=== PATIENT | male | born 1980 | race African-American/Black ===

== ENCOUNTER 2017-09-23 08:06 | Day surgery (SDC) | payer OTHER ==
[2017-09-17 15:57] VITALS: BMI 27.2
[2017-09-23 08:46] LABS: BASOPHIL 0.3 % (0-2.0); EOSINOPHIL 1.5 % (0-4.5); MCHC 32.5 g/dl (32.0-35.9); MEAN CELL VOLUME 83.1 fl (80-96); MEAN PLT VOLUME 7.8 fl (7.5-11.1); PLATELET COUNT 226 K/MM3 (134-434); WHITE BLOOD COUNT 5.4 K/mm3 (4.0-10.0)
[2017-09-23 08:48] LABS: INR 1.1 (0.82-1.09); PROTHROMBIN TIME (PATIENT) 12.4 SEC (9.98-11.88)
[2017-09-23] MEDS ORDERED: MIDAZOLAM HCL 2 MG/2 ML SINGLE DOSE VIAL ONE ×3 (09:50→10:36)
--- NOTE | 2017-09-23 10:12 | HP ---
History & Physical Update - History History: No Change - Physical Physical: No Change - Assessment Assessment: No Change - Plan Plan: No Change (Soft tissue mass right upper extremity for excision; r/b/t/a's d/w patient in the office; informed consent obtained; pre-op medical evaluation has been reviewed.)
[2017-09-23] MEDS ORDERED: BUPIVACAINE HCL/PF 0.5% (5MG/ML) 10 ML VIAL ONE (10:20)
[2017-09-23] MEDS ORDERED: LIDOCAINE HCL 1%, 10 MG/ML (20ML VIAL) ONE (10:24)
[2017-09-23] MEDS ORDERED: PROPOFOL 20 ML ONE (10:25)
[2017-09-23] MEDS ORDERED: LIDOCAINE HCL 1%, 10 MG/ML (20ML VIAL) NR ONE (10:40)
[2017-09-23] MEDS ORDERED: BUPIVACAINE HCL/PF 0.5% (5MG/ML) 10 ML VIAL IJ ONE (10:40)
--- NOTE | 2017-09-23 11:03 | OP ---
Operative Note - Note: Operative Date: 09/23/17 Pre-Operative Diagnosis: lipoma right upper extremity Operation: excision lipoma right upper extremity Findings: 2.6 cm. lipoma Post-Operative Diagnosis: Same as Pre-op Surgeon: Romeo Jeffers Anesthesiologist/FLOOR WORKER [employer] SERVICE: Clint Amezcua Anesthesia: MAC Specimens Removed: lipoma Estimated Blood Loss (mls): 5
[2017-09-23] MEDS ORDERED: oxyCODONE HCL 5 MG TABLET PO PRN (11:06)
[2017-09-23] MEDS ORDERED: PROMETHAZINE HCL 25 MG/1 ML VIAL IVPUSH PRN (11:06)
[2017-09-23] MEDS ORDERED: ONDANSETRON 4 MG/2 ML VIAL IVPUSH PRN (11:06)
[2017-09-23] MEDS ORDERED: LACTATED RINGERS SOLUTION 1,000 ML IV SCH (11:15)
[2017-09-23 12:29] VITALS: TEMP 98.3
[2017-09-23 14:05] VITALS: BP 146/92; PULSE 79
--- NOTE | 2017-09-24 15:25 | OP ---
DATE OF OPERATION: 09/23/2017 PREOPERATIVE DIAGNOSIS: Soft tissue mass of the right upper extremity. POSTOPERATIVE DIAGNOSIS: Soft tissue mass of the right upper extremity. PROCEDURE: Excision of soft tissue mass of the right upper extremity. SURGEON: Romeo Jeffers MD ANESTHESIA: Local with IV sedation. OPERATIVE FINDINGS: There was approximately a 2.6-cm soft tissue mass in the dorsal aspect of the upper right extremity clinically consistent with a lipoma. The rest of the findings were unremarkable. DESCRIPTION OF PROCEDURE: The patient was placed on the operating table in the supine position with the right arm above his head. The area over the mass was prepped with ChloraPrep and draped in sterile fashion and a timeout was taken and the area infiltrated with 1% Xylocaine and 0.50% Marcaine in equal concentration. An incision was made with a scalpel and taken down through skin and subcutaneous tissue and the mass dissected from the surrounding area. The pedicle was clamped, the mass excised and sent for pathological examination, and the pedicle ligated with 3-0 Vicryl suture. Hemostasis was checked for and noted to be good, and then, the wound was copiously irrigated with sterile saline and closed in layers with interrupted 3-0 Vicryl for the deep dermis and 4-0 Vicryl in a subcuticular continuous fashion to reapproximate the skin edges. Steri-Strips, fluffs, and a Tegaderm dressing were placed and the procedure terminated at this point and the patient transferred to the postanesthesia care unit in stable condition, awake and alert. ESTIMATED BLOOD LOSS: 5 mL REPLACEMENTS: Crystalloid. DRAINS: None. SPECIMEN: Lipoma to Pathology. I, Romeo Jeffers MD, was physically present in the operating room from the time the patient was placed on the operating table until he was transferred to the postanesthesia care unit in my accompaniment. MD KIMBERLY Molina/[id number]
--- NOTE | 2017-09-24 15:48 | PATH ---
Surgical Pathology Report Patient Name: FRANSICO RUTH [facility]. Rec. #: [id number] /Age/Gender: 1980 (Age: 37) / M Account: [id number] Location: [facility] SURGICAL Taken: 09/23/2017 Received: 09/23/2017 Reported: 09/24/2017 Physicians: Romeo Jeffers MD Specimen(s) Received LIPOMA Clinical History Soft tissue mass right upper arm Final Diagnosis SOFT TISSUE, MASS, UPPER ARM, RIGHT, EXCISION: MATURE FIBROADIPOSE TISSUE CONSISTENT WITH LIPOMA. Electronically Signed Missy Ray M.D. Gross Description Received in formalin labeled "lipoma right arm," is a 2.6 x 2.2 x 0.5 cm portion of yellow, lobulated adipose tissue. Sectioning reveals homogeneous yellow, smooth fat. No areas of hemorrhage or necrosis are identified. Chemical Laboratory Technician sections are submitted in one cassette. /09/23/2017 saudi09/23/2017
== END 2017-09-23 13:30 | disposition home or self-care (01) ==
LOC: JASU-SURG 08:06
PROVIDERS: ATTEND Surgery
PROC: 0JBD0ZZ Excision of Right Upper Arm Subcutaneous Tissue and Fascia, Open Approach (ICD-10-PCS; principal; 2017-09-23 09:30)
DX: D17.21 Benign lipomatous neoplasm of skin and subcutaneous tissue of right arm (principal)
CPT/HCPCS: 36415; 85025; 85610; 88304-TC; 94760